=== PATIENT | male | born 1950 ===

== ENCOUNTER → 2022-02-06 | Outpatient (CLI) | payer MEDICARE, BC | END | disposition home or self-care (01) | LOC: PLD 07:56 → LAB 07:56 → LAB SHORT 07:56 | DX: L82.1 Other seborrheic keratosis (principal) | CPT/HCPCS: 88305 ==

== ENCOUNTER → 2023-10-22 | Outpatient (CLI) | payer MEDICARE, BC | LOC: LAB SHORT 10:05 → PLD 10:05 | DX: L01.02 Bockhart's impetigo (principal) | CPT/HCPCS: 88305 ==

== ENCOUNTER → 2024-02-05 | Outpatient (CLI) | payer MEDICARE, BC | LOC: LAB 11:38 → LAB SHORT 11:38 | DX: C44.612 Basal cell carcinoma of skin of right upper limb, including shoulder (principal) | CPT/HCPCS: 88305 ==